=== PATIENT | male | born 1955 | race Caucasian/White ===

== ENCOUNTER 2024-10-12 05:45 | Emergency (ER) | payer MEDICARE, OTHER ==
[~2024-10-12] VITALS: Ht 182.9 cm; Wt 80.0 kg
[~2024-10-12 05:45] MED LIST: CLINDAMYCIN HC150 MG PO; IBUPROFEN400 MG PO; KEFLEX500 MG PO; LORTAB 5-500 T1 EACH PO; NORCO 5-325 TA1 EACH PO
[2024-10-12] MEDS ORDERED: PENICILLIN G BENZATHINE 1.2 MUNITS/2 ML SYR IM ONE ×2 (07:00→07:45)
[2024-10-12] MEDS ORDERED: levoFLOXacin 500 MG TAB PO ONE (07:00)
[2024-10-12] MEDS ORDERED: CEPHALEXIN MONOHYDRATE 500 MG CAP PO ONE (07:00)
[2024-10-12] MEDS ORDERED: CEPHALEXIN500 MG PO (07:04)
[2024-10-12] MEDS ORDERED: LEVOFLOXACIN500 MG PO (07:04)
[2024-10-12 07:46] VITALS: BP 148/84
== END 2024-10-12 07:47 | disposition home or self-care (01) ==
LOC: ED 05:45
DX: S92.411B Displaced fracture of proximal phalanx of right great toe, initial encounter for open fracture (principal); W30.9XXA Contact with unspecified agricultural machinery, initial encounter; Z79.899 Other long term (current) drug therapy
CPT/HCPCS: 73660; 96372; 99283; A9270; J0561